=== PATIENT | female | born 2000 | race Caucasian/White ===

== ENCOUNTER 2019-10-30 02:35 | Emergency (ER) | payer SELFPAY ==
[~2019-10-30] VITALS: Ht 165.1 cm; Wt 61.2 kg
--- NOTE | 2019-10-30 02:35 | NUR ---
ROBERTO GAITAN, PREBOOK. TAKEN TO CHAIR
[2019-10-30 02:40] VITALS: BP 121/75
--- NOTE | 2019-10-30 02:40 | NUR ---
ASSESSED, TREATED, AND D/C BY ERMD. NO NURSING INTERVENTIONS NEEDED.
[2019-10-30 02:50] VITALS: BP 121/75
--- NOTE | 2019-10-30 02:50 | NUR ---
Patient discharged with v/s stable. Written and verbal after care instructions given and explained. Patient verbalized understanding. In custody with STEVE GAITAN. All questions addressed prior to discharge. Paperwork given to officer Basilio #[id number]. Advised to follow up with [employer]D.
== END 2019-10-30 02:50 ==
LOC: MED 02:35
DX: F17.210 Nicotine dependence, cigarettes, uncomplicated (principal); Z02.89 Encounter for other administrative examinations; Y90.9 Presence of alcohol in blood, level not specified
CPT/HCPCS: 99283